=== PATIENT | female | born 1960 | race Caucasian/White ===

== ENCOUNTER 2018-07-07 21:49 | Observation (INO) | payer MEDICARE, MEDICAID ==
[2018-07-07] MEDS ORDERED: TOPAMAX50 MG PO (21:54)
[2018-07-07] MEDS ORDERED: COZAAR25 MG (21:54)
[2018-07-07] MEDS ORDERED: PROZAC40 MG PO (21:54)
[2018-07-07] MEDS ORDERED: BUSPAR5 MG PO (21:54)
[2018-07-07] MEDS ORDERED: MOBIC7.5 MG PO (21:54)
[2018-07-07] MEDS ORDERED: NEURONTIN 300300 MG PO (21:54)
[2018-07-07] MEDS ORDERED: OMEPRAZOLE40 MG PO (21:55)
[2018-07-07 22:32] LABS: BASOPHILS 0.2 % (0-2); EOSINOPHILS 0.4 % (0-7); HEMATOCRIT 34.7 % (36.0-48.0); HEMOGLOBIN 11.9 g/dL (12-16); IMMATURE GRANULOCYTES 0.2 % (0-5); LYMPHOCYTES 23.8 % (15-50); MCH 28.5 pg (26.0-34.0); MCHC 34.3 g/dL (31.0-37.0); MCV 83.2 fL (80.0-100.0); MEAN PLATELET VOLUME 8.7 fL (7.4-10.4); MONOCYTES 5.6 % (2-11); NEUTROPHILS 69.8 % (40-80); PLATELET COUNT 283 10x3/uL (130-400); RBC 4.17 10x6/uL (4.00-5.40); WBC 9.7 10x3/uL (4.8-10.8)
[2018-07-07 22:44] LABS: ALBUMIN 3.3 g/dL (3.4-5.0); ALKALINE PHOSPHATASE 95 U/L (46-116); ALT (SGPT) 26 U/L (10-68); CALC OSMOLALITY 284 mosm/kg (275-300); CALCIUM 8.7 mg/dL (8.5-10.1); CARBON DIOXIDE 27.4 mmol/L (21.0-32.0); CHLORIDE - SERUM 104 mmol/L (98-107); CREATININE - SERUM 0.8 mg/dL (0.6-1.3); GLUCOSE 99 mg/dL (74-106); MAGNESIUM - SERUM 2.1 mg/dL (1.8-2.4); PROTEIN - SERUM 6.5 g/dL (6.4-8.2); SODIUM 142 mmol/L (136-145); UREA NITROGEN 17 mg/dL (7-18); eGFR NON AFRICAN AMERICAN 78 mL/min (90-120)
--- NOTE | 2018-07-07 22:47 | NUR ---
poison control called at this time. no recommendations at this time. state to call back if pt becomes symtomatic.
--- NOTE | 2018-07-07 22:48 | NUR ---
pt up to bathroom with assistance.
[2018-07-07 22:51] LABS: POTASSIUM - SERUM 2.7 mmol/L (3.5-5.1)
--- NOTE | 2018-07-07 22:53 | NUR ---
URINE SENT TO LAB PT STATES, "KYLAH KWOK CAN BE INFORMED OF CONDITIO."
[2018-07-07 23:08] LABS: APPEARANCE CLEAR (CLEAR); BILIRUBIN NEGATIVE (NEGATIVE); COLOR YELLOW (YELLOW); GLUCOSE NEGATIVE (NEGATIVE); KETONE NEGATIVE (NEGATIVE); NITRITE NEGATIVE (NEGATIVE); PROTEIN NEGATIVE (NEGATIVE); SPECIFIC GRAVITY 1.015 (1.005-1.020); UROBILINOGEN NORMAL (NORMAL)
[2018-07-07 23:09] LABS: UDS - AMPHET NEGATIVE QUAL (NEGATIVE); UDS - BARB NEGATIVE QUAL (NEGATIVE); UDS - BENZO NEGATIVE QUAL (NEGATIVE); UDS - COCAINE POSITIVE QUAL (NEGATIVE); UDS - OPIATE NEGATIVE QUAL (NEGATIVE); UDS - PCP NEGATIVE QUAL (NEGATIVE); UDS - THC NEGATIVE QUAL (NEGATIVE)
--- NOTE | 2018-07-07 23:12 | NUR ---
RECEIVED PT TO ROOM 2311 VIA STRETCHER ACCOMPANIED BY ER STAFF. PT LETHARGIC WITH SLOW RESPONSE TO QUESTIONS BUT ANSWERS APPROPRIATELY, ICU MONITORS ESTABLISHED, VSS, HR SR ON CM, VERBALIZES THAT SHE WILL NOT HARM HERSELF WHILE IN THE HOSPITAL.
[2018-07-07 23:15] VITALS: BP 165/93; BMI 25.3
[2018-07-08] VITALS (19 sets, daily range): BP systolic 102–151; BP diastolic 54–95
--- NOTE | 2018-07-08 00:23 | NUR ---
DR. PRUETT NOTIFIED AT THIS TIME OF NEW ADMISSIONS
--- NOTE | 2018-07-08 00:24 | NUR ---
RECEIVED PATIENT CARE - PT RESTING COMFORTABLY EYES CLOSED, EVEN RISE AND FALL OF CHEST NO APPARENT DISTRESS. VSS CPOC
--- NOTE | 2018-07-08 01:06 | NUR ---
PATIENT PROVIDED ORANGE JUICE PER REQUEST - CO OF LEFT CALF PAIN AT THIS TIME
--- NOTE | 2018-07-08 02:42 | NUR ---
SPOKE WITH POISON CONTROL FOR PATIENT UPDATE
--- NOTE | 2018-07-08 03:05 | NUR ---
REASSESSMENT COMPLETED SEE FLOWSHEET
--- NOTE | 2018-07-08 04:48 | NUR ---
PATIENT REQUESTING FOOD, CLEAR LIQUID ONLY AT THIS TIME, CALLED DR PRUETT TO CONFIRM NEW ORDERS RECEIVED
--- NOTE | 2018-07-08 07:00 | NUR ---
RECEVIED BEDSIDE REPORT ON PATIENT AND ASSUMED CARE OF PATIENT. PATIENT RESTING QUIETLY, EASILY AROUSED BY VOICE. VSS. IV NSL TO RIGHT HAND 24 GA. HEAD TO TOE ASSESSMENT COMPLETED.
--- NOTE | 2018-07-08 08:15 | NUR ---
PATIENT ATE 100% OF BREAKFAST TRAY. VSS.
--- NOTE | 2018-07-08 11:00 | NUR ---
REASSESSMENT COMPLETED, VSS. PATIENT RESTING QUIETLY.
--- NOTE | 2018-07-08 13:16 | NUR ---
PATIENT EATING LUNCH TRAY, NO NEEDS AT THIS TIME. VSS.
[2018-07-08 13:27] LABS: CKMB 1.7 U/L (0.0-3.6); CREATINE KINASE 202 UL (21-215)
[2018-07-08 13:33] LABS: TROPONIN-I < 0.017 ng/mL (0.000-0.060)
--- NOTE | 2018-07-08 15:08 | NUR ---
PATIENT REASSESSMENT COMPLETED. PATIENT RESTING QUIELTY WITH EYES CLOSED, VSS, EASILY AROUSED BY VOICE.
--- NOTE | 2018-07-08 15:59 | NUR ---
PATIENT GIVEN SNACK, JELLO AND PUDDING PER REQUEST.
--- NOTE | 2018-07-08 16:50 | NUR ---
PATIENT PROVIDED DINNER TRAY. VSS.
[2018-07-08 17:37] LABS: CKMB 1.9 U/L (0.0-3.6); CREATINE KINASE 177 UL (21-215); TROPONIN-I < 0.017 ng/mL (0.000-0.060)
--- NOTE | 2018-07-08 17:46 | MORECARE ---
CASE MANAGEMENT DISCHARGE SUMMARY PATIENT: NICOL ALVES UNIT: [id number] ADM DATE: 07/07/18 AGE: 58 : 64 SEX: F ROOM/BED: D.2311 AUTHOR: LILA GONZALEZ PHYSICIAN: REFERRING PHYSICIAN: PETER PRUETT MD DATE OF SERVICE: 07/08/18 Discharge Plan Patient Name: NICOL ALVES [facility] [facility] 1960 Planned Disposition: Anticipated Discharge Date: Discharge Date: Expected LOS: Initial Reviewer: [email or web address] Initial Review Date: 07/07/2018 Generated: 07/08/18 6:45 pm Patient Name: NICOL ALVES Page [id number] at 1746 All edits/amendments must be made on the electronic document DICTATION DATE: 07/08/181744 HUMANITIES INSTRUCTOR: ERICA 07/08/181744 RPT#: [id number] DC DATE: STATUS: ADM IN [facility] [address] [place] [address] END OF REPORT
--- NOTE | 2018-07-08 19:00 | NUR ---
REPORT RECEIVED. RECEIVED PATIENT IN BED AWAKE AND ALERT. ORIENTED X 4. SPEECH CLEAR AND APPROPRIATE. MONITORS CONNECTED TO PATIENT WITH ALARMS SET. VSS. SHIFT ASSESSMENT COMPLETED PER FLOW SHEET WITH NO ACUTE DISTRESS OBSERVED. CALL LIGHT IN REACH AND ABLE TO UTILIZE TO MAKE NEEDS KNOWN.
--- NOTE | 2018-07-08 20:00 | NUR ---
COMPLAINS OF HEADACHE. 5/10 ON PAIN SCALE. REQUEST PROVIDER BE CALLED FOR TYLENOL. EDGAR LOUISE ROTO GRAVURE PRESS OPERATOR PAGED.
--- NOTE | 2018-07-08 21:00 | NUR ---
RESTING WITH EYES CLOSED. VSS. CALL LIGHT IN REACH.
--- NOTE | 2018-07-08 22:00 | NUR ---
RETURN CALL FROM EDGAR LOUISE WITH NEW ORDERS RECEIVED
--- NOTE | 2018-07-08 23:00 | NUR ---
REASSESSMENT COMPLETED PER FLOW SHEET WITH NO CHANGES OR ACUTE DISTRESS OBSERVED. VSS. CALL LIGHT IN REACH.
[2018-07-08 23:48] LABS: CKMB 1.5 U/L (0.0-3.6); CREATINE KINASE 168 UL (21-215)
[2018-07-08 23:49] LABS: TROPONIN-I < 0.017 ng/mL (0.000-0.060)
[2018-07-09] VITALS (19 sets, daily range): BP systolic 137–182; BP diastolic 64–95
--- NOTE | 2018-07-09 01:00 | NUR ---
RESTING WITH EYES CLOSED. ROUSES EASILY. VSS. NO ACUTE DISTRESS OBSERVED. CALL LIGHT IN REACH.
--- NOTE | 2018-07-09 03:00 | NUR ---
REASSESSMENT COMPLETED PER FLOW SHEET WITH NO CHANGES OR ACUTE DISTRESS OBSERVED. VSS. CALL LIGHT IN REACH.
[2018-07-09 05:18] LABS: BASOPHILS 0.3 % (0-2); EOSINOPHILS 4.4 % (0-7); HEMATOCRIT 34.1 % (36.0-48.0); IMMATURE GRANULOCYTES 0.2 % (0-5); LYMPHOCYTES 39.5 % (15-50); MCH 27.4 pg (26.0-34.0); MCHC 32.3 g/dL (31.0-37.0); MCV 84.8 fL (80.0-100.0); MONOCYTES 8.1 % (2-11); NEUTROPHILS 47.5 % (40-80); PLATELET COUNT 250 10x3/uL (130-400); RBC 4.02 10x6/uL (4.00-5.40); RDW 15.7 % (11.5-14.5)
[2018-07-09 05:43] LABS: WBC 6.4 10x3/uL (4.8-10.8)
[2018-07-09 06:11] LABS: ALBUMIN 2.5 g/dL (3.4-5.0); ALKALINE PHOSPHATASE 81 U/L (46-116); ALT (SGPT) 23 U/L (10-68); BILIRUBIN - TOTAL 0.35 mg/dL (0.2-1.3); CALC OSMOLALITY 286 mosm/kg (275-300); CHLORIDE - SERUM 110 mmol/L (98-107); CREATININE - SERUM 0.8 mg/dL (0.6-1.3); GLUCOSE 81 mg/dL (74-106); PHOSPHOROUS 3.8 mg/dL (2.5-4.9); POTASSIUM - SERUM 3.7 mmol/L (3.5-5.1); PRO BNP 273 pg/mL (0-125); PROTEIN - SERUM 5.1 g/dL (6.4-8.2); SODIUM 144 mmol/L (136-145); UREA NITROGEN 15 mg/dL (7-18); eGFR NON AFRICAN AMERICAN 78 mL/min (90-120)
--- NOTE | 2018-07-09 07:00 | NUR ---
REPORT RECEIVED FROM [facility]O AND PATIENT CARE ASSUMED. PATIENT LAYING IN BED WITH EYES CLOSED AND BREATHING EVENLY. VSS. WILL CONTINUE WITH PLAN OF CARE. SR UP X 2 BED IN LOW POSITION CALL LIGHT IN REACH.
--- NOTE | 2018-07-09 09:30 | NUR ---
ASSESSMENT COMPLETED. WILL CONTINUE TO MONITOR.
--- NOTE | 2018-07-09 11:14 | NUR ---
PATIENT HAD LARGE BM AND URINATED. PATIENT BATHED AND LINEN CHANGED. PATIENT DENIES ANY NEEDS OR PAIN. PATIENT IS STABLE AND VSS. REASSESSMENT COMPLETED. WILL CONTINUE TO MONITOR. SR UP X 2 BED IN LOW POSTITION AND CALLL LIGHT IN REACH.
--- NOTE | 2018-07-09 13:20 | MORECARE ---
CASE MANAGEMENT DISCHARGE SUMMARY PATIENT: NICOL ALVES UNIT: [id number] ADM DATE: 07/07/18 AGE: 58 : 64 SEX: F ROOM/BED: D.2311 AUTHOR: LILA GONZALEZ PHYSICIAN: REFERRING PHYSICIAN: PETER PRUETT MD DATE OF SERVICE: 07/09/18 Discharge Plan Patient Name: NICOL ALVES Facility: [facility]:[place] : 1960 Planned Disposition: Anticipated Discharge Date: Discharge Date: Expected LOS: Initial Reviewer: [email or web address] Initial Review Date: 07/07/2018 Generated: 07/09/18 2:19 pm External Providers External Provider: [facility] Next Contact Date: Service Request Date: Service Type: Resolution: Reviewer: Comments: Last DP export: 07/08/18 4:45 p Patient Name: NICOL ALVES Page [phone] at 1320 All edits/amendments must be made on the electronic document DICTATION DATE: 07/09/18 1319 RADIOLOGIC TECHNOLOGY PROGRAM DIRECTOR: DM 07/09/18 1319 RPT#: [id number] DC DATE: STATUS: ADM IN [facility] [address] [place] [address] END OF REPORT
--- NOTE | 2018-07-09 15:00 | NUR ---
PATIENT RESTING QUIETLY WATCHING MOVIE ON PHONE. RESSESSMENT COMPLETED. PATIENT DENIES ANY NEEDS OR PAIN. PATIENT IS STABLE AND VSS. VIVIENNE FROM [facility] IN CALLED. VIVIENNE REQUESTED LATEST PROGRESS NOTES, LAB AND VS. FAXED INFORMATION TO HER. VIVIENNE QUESTIONED IF PATIENT PREFER TO GO TO OR [place]. PATIENT STATED THAT SHE CANNOT GO TO EITHER DUE TO NO TRANSPORTATION WHEN DC. PATIENT ALSO STATED THAT SHE HAS A THERAPIST WITH [facility] AND REQUESTS TO GO THERE. INFORMED DANIELLA NUNEZ WHO INFORMED ME THAT [facility] WILL NOT ACCEPT HER. ;DANIELLA GOING TO CHECK OTHER OPTIONS AND LET ME KNOW.
--- NOTE | 2018-07-09 18:36 | MORECARE ---
CASE MANAGEMENT DISCHARGE SUMMARY PATIENT: NICOL ALVES UNIT: [id number] ADM DATE: 07/07/18 AGE: 58 : 64 SEX: F ROOM/BED: D.2311 AUTHOR: LILA GONZALEZ PHYSICIAN: REFERRING PHYSICIAN: PETER PRUETT MD DATE OF SERVICE: 07/09/18 Discharge Plan Patient Name: NICOL ALVES [facility] [facility] 1960 Planned Disposition: Psych facility Anticipated Discharge Date: Discharge Date: Expected LOS: Initial Reviewer: [email or web address] Initial Review Date: 07/07/2018 Generated: 07/09/18 7:36 pm Last DP export: 07/09/18 12:20 p Patient Name: NICOL ALVES Page [id number] at 1836 All edits/amendments must be made on the electronic document DICTATION DATE: 07/09/181834 TRAVEL PT: ERICA 07/09/181834 RPT#: [id number] DC DATE: STATUS: ADM IN [facility] [address] [place] [address] END OF REPORT
--- NOTE | 2018-07-09 18:36 | NUR ---
RECIEVED PHONE CALL FROM VIVIENNE WITH [facility]. PATIENT HAS BEEN ACCEPTED TO [facility] IN [place] FOR INPATIENT PSYCH CARE. RECIEVED INFORMATION TO FAX RECORDS AND CALL REPORT.
--- NOTE | 2018-07-09 18:50 | MORECARE ---
CASE MANAGEMENT DISCHARGE SUMMARY PATIENT: NICOL ALVES UNIT: [id number] ADM DATE: 07/07/18 AGE: 58 : 64 SEX: F ROOM/BED: D.2311 AUTHOR: LILA GONZALEZ PHYSICIAN: REFERRING PHYSICIAN: PETER PRUETT MD DATE OF SERVICE: 07/09/18 Discharge Plan Patient Name: NICOL ALVES Facility: [facility]:[place] : 1960 Planned Disposition: Psych facility Anticipated Discharge Date: Discharge Date: Expected LOS: Initial Reviewer: [email or web address] Initial Review Date: 07/07/2018 Generated: 07/09/18 7:49 pm Comments DCP- Discharge Planning Updated by [email or web address]: Magali Dill on 07/09/18 5:[address] CM received notice that patient medically stable for discharge to inpatient pysch treatment. CM called and faxed records to transfer center. Patient is voluntary to go to inpatient psych placement. Patient then stated that she only wanted to go to [facility] because she wouldn't have transportation home from any other facility. CM spoke with patient she is willing to be placed on 72 hr hold if needed. Patient then stated that she would be willing to go to [facility]. CM contacted VIVIENNE at [facility]. She stated she would work on placement. CM will continue to follow and assist as needed with discharge planning/ needs. Last DP export: 07/09/18 5:36 p Patient Name: NICOL ALVES Page [id number] at 1850 All edits/amendments must be made on the electronic document DICTATION DATE: 07/09/181848 HOME OFFICE CLAIM SPECIALIST: ERICA 07/09/181848 RPT#: [id number] DC DATE: STATUS: ADM IN [facility] [address] [place] [address] END OF REPORT
--- NOTE | 2018-07-09 19:00 | NUR ---
SHIFT ASSESSMENT COMPLETE. PT IS A&O X4 WITH NO COMPLAINTS OF PAIN OR DISCOMFORT AT THIS TIME. SHE IS IN GOOD SPIRITS. EDUCATED HER ON XFER TO [facility] IN [place]. SHE IS OKAY WITH XFER BUT REQUESTS TO HAVE HER INFORMATION CONFIDENTAL IF ANYONE WERE TO CALL [facility]. STATED THAT WE WOULD ENSURE HER PRIVACY. S1S2 AUDIBLE, HR 68 BPM NSR SHOWING ON MONITOR. RR EVEN AND UNLABORED, CLEAR LUNG SOUNDS HEARD BILAT THROUGHOUT ALL LOBES. ABD FLAT, BS ACTIVE X4, NO PAIN OR TENDERNESS AT THIS TIME. RADIAL AND PEDAL PULSES PALP. R HAND PIV INFUSING NS @ 30 ML/HR. CHANGED TEGADERM ON HAND. VSS. CALL LIGHT IN REACH, BED IN LOWEST POSITION. WILL CONT WITH POC.
--- NOTE | 2018-07-09 19:53 | NUR ---
REPORT CALLED TO SWAPNIL JACKMAN RN AT [facility].
--- NOTE | 2018-07-09 21:00 | NUR ---
Removed PIV from R hand, PIV cath intact, bandage placed on hand. No further needs at this time. Pt reamins in good spirits. Will cont with POC.
--- NOTE | 2018-07-09 22:10 | NUR ---
[facility]S here to xfer pt. All belongings with pt.
--- NOTE | 2018-07-10 15:45 | MORECARE ---
CASE MANAGEMENT DISCHARGE SUMMARY PATIENT: NICOL ALVES UNIT: [id number] ADM DATE: 07/07/18 AGE: 58 : 64 SEX: F ROOM/BED: D.2311 AUTHOR: LILA GONZALEZ PHYSICIAN: REFERRING PHYSICIAN: PETER PRUETT MD DATE OF SERVICE: 07/10/18 Discharge Plan Patient Name: NICOL ALVES Facility: [facility]:[place] : 1960 Planned Disposition: Psych facility Anticipated Discharge Date: Discharge Date: 07/09/2018 Expected LOS: Initial Reviewer: [email or web address] Initial Review Date: 07/07/2018 Generated: 07/10/18 4:44 pm Comments DCP- Discharge Planning Updated by [email or web address]: Magali Dill on 07/09/18 5:[address] CM received notice that patient medically stable for discharge to inpatient pysch treatment. CM called and faxed records to transfer center. Patient is voluntary to go to inpatient psych placement. Patient then stated that she only wanted to go to [facility] because she wouldn't have transportation home from any other facility. CM spoke with patient she is willing to be placed on 72 hr hold if needed. Patient then stated that she would be willing to go to [facility]. CM contacted VIVIENNE at [facility]. She stated she would work on placement. CM will continue to follow and assist as needed with discharge planning/ needs. Last DP export: 07/09/18 5:49 p Patient Name: NICOL ALVES Page [id number] at 1545 All edits/amendments must be made on the electronic document DICTATION DATE: 07/10/18 1544 CARTOGRAPHIC DESIGNER: ERICA 07/10/18 1544 RPT#: [id number] DC DATE:07/09/18 STATUS: DIS IN [facility] [address] [place] [address] END OF REPORT
--- NOTE | 2018-07-10 16:38 | CN ---
PATIENT NAME:NICOL ALVES MEDICAL RECORD: [id number] : 64 LOCATION:NICOLED.2311 ADMIT DATE: 07/07/18 ACCOUNT: [id number] CONSULTING PHYSICIAN: MARISA MANZANO MD REFERRING PHYSICIAN: PETER PRUETT MD DATE OF CONSULTATION: 07/08/2018 PSYCHIATRIC CONSULTATION IDENTIFYING DATA: The patient is 58 years old and she is admitted to the hospital on a voluntary basis. CHIEF COMPLAINT: Overdose. HISTORY OF PRESENT ILLNESS: The patient endorses numerous neurovegetative depressive symptoms that have been going on for a long time. She says she took a handful of gabapentin and melatonin in an attempt to kill herself. Her urine is positive for cocaine. She has a history of suicide attempts and has been previously diagnosed with bipolar disorder. MENTAL STATUS EXAMINATION: The patient is awake; alert; and oriented to person, place, time, and situation. Her mood is depressed. Her affect is constricted. Thought processes are circumstantial. Memory, concentration, and abstraction abilities are moderately impaired. She denies that she would currently seek to harm herself or others as well as overt psychotic symptoms. ASSESSMENT: 1. Status post overdose. 2. Bipolar disorder, depressed. 3. Cocaine abuse. PLAN: At this time, the patient is in need of inpatient psychiatric care once medically stabilized. I would recommend that she be transferred to an inpatient behavioral unit as soon as it is practical to do so. Her long-term prognosis is clearly guarded. She will require follow up on an outpatient basis with a psychiatrist. TRANSINT:[id number] Voice Confirmation ID: [id number] DOCUMENT ID: [id number] MARISA MANZANO MD at 1638 CC: [id number] DICTATION DATE: 07/08/18 1627 SECURITY INCIDENT HANDLER: 07/08/18 1854 DIS IN 07/09/18 [address] [place] [address]
== END 2018-07-09 22:10 | disposition short-term general hospital (02) ==
LOC: D.ER 21:49 → D.ICU 22:22 → OBSVTIME 22:22 → D.ICU 07-09 22:10
PROVIDERS: Family Medicine; ADMIT Internal Medicine Nephrology; ATTEND Internal Medicine Nephrology
DX: T42.6X2A Poisoning by other antiepileptic and sedative-hypnotic drugs, intentional self-harm, initial encounter (principal); F31.9 Bipolar disorder, unspecified; F32.9 Major depressive disorder, single episode, unspecified; F14.10 Cocaine abuse, uncomplicated